=== PATIENT | male | born 1960 | race Caucasian/White ===

== ENCOUNTER 2022-04-01 08:11 | Inpatient (IN) ==
[2022-04-01] MEDS ORDERED: Naloxone 0.4 MG/ML INJ IVP PRN (17:16)
[2022-04-01] MEDS ORDERED: Ondansetron 4 MG/2 ML VIAL IVP PRN (17:16)
[2022-04-01] MEDS ORDERED: Nitroglycerin 0.4 MG TAB.SUBL SL PRN (17:21)
[2022-04-01] MEDS ORDERED: Perflutren Lipid Microsphere 1.3 ML in 0.9 % Sodium Chloride 8.7 ML IVP PRN (17:22)
[2022-04-01] MEDS ORDERED: *HR* HYDROcodone/Acet 5/325 mg TABLET PO ONE (18:48)
[2022-04-01] MEDS: *HR* LORazepam 2 MG/ML VIAL IVP PRN (19:49)
[2022-04-01] MEDS: *HR* Heparin 5,000 UNIT/ML VIAL SQ SCH (19:50)
[2022-04-01] MEDS ORDERED: Gadolinium Contrast Agent (WT Based) IV PRN (20:48)
[2022-04-01 21:12] LABS: Basophils # 0.1 K/mcL (0.0-0.2); Basophils % 1.1 %; Eosinophils % 0.2 %; Hematocrit 37.5 % (37.5-50.1); Hemoglobin 12.8 g/dL (12.9-16.9); Immature Granulocytes % 0.5 % (0-4); Immature Platelets 4.1 % (1.1-6.1); Lymphocytes # 0.9 K/mcL (0.6-4.6); Lymphocytes % 13.2 %; Mean Corpuscular HGB Conc 34.1 g/dL (31.6-35.5); Mean Corpuscular Hemoglobin 31.1 pg (28.0-33.3); Mean Platelet Volume 10.1 fL (9.4-12.4); Monocytes # 0.8 K/mcL (0.0-1.3); Neutrophils # 4.8 K/mcL (1.6-8.9); Red Blood Count 4.12 M/mcL (4.19-5.50); Red Cell Distribution Width 15.4 % (11.5-14.5); White Blood Count 6.5 K/mcL (4.3-11.1)
[2022-04-01 21:22] LABS: INR 1.6; Prothrombin Time 17.8 Seconds (9.4-12.1)
[2022-04-01 21:30] LABS: Alanine Aminotransferase 15 Units/L (7-52); Albumin 2.9 g/dL (3.5-5.7); Albumin/Globulin Ratio 0.7 (1.1-2.2); Alkaline Phosphatase 111 Units/L (34-104); Aspartate Amino Transferase 50 Units/L (13-39); BUN/Creatinine Ratio 17 (6-26); Bilirubin,Total 2.2 mg/dL (0.3-1.0); Blood Urea Nitrogen 8 mg/dL (8-23); Calcium 8.2 mg/dL (8.6-10.3); Carbon Dioxide 25 mEq/L (23-29); Chloride 100 mEq/L (98-107); Glucose 120 mg/dL (70-105); Magnesium 1.7 mg/dL (1.6-2.6); Osmolality,Calculated 272 (280-300); Potassium 3.9 mEq/L (3.5-5.1); Sodium 131 mEq/L (136-145); Total Protein 6.9 g/dL (6.4-8.9); eGFR For African Americans > 60 (> 60); eGFR For Non-African Americans > 60 (> 60)
[2022-04-01 21:32] LABS: Platelet Count 96 K/mcL (140-400); Platelet Estimate Decreased (Normal)
[2022-04-02] MEDS: *HR* Heparin 5,000 UNIT/ML VIAL SQ SCH (04:42)
[2022-04-02] MEDS ORDERED: *HR* HYDROcodone/Acet 5/325 mg TABLET PO ONE (04:48)
[2022-04-02] MEDS: *HR* LORazepam 2 MG/ML VIAL IVP PRN ×2 (04:56→19:56)
[2022-04-02 05:10] LABS: Chol/HDL Ratio 4.4 (0-4.9)
[2022-04-02] MEDS ORDERED: Iopamidol - 370 500 ML MLS IVP ONE ×2 (08:20)
[2022-04-02] MEDS ORDERED: *HR* LORazepam 2 MG/ML VIAL IVP PRN ×2 (08:41)
[2022-04-02] MEDS ORDERED: Aspirin 81 MG TAB.CHEW PO SCH (09:00)
[2022-04-02] MEDS ORDERED: *HR* LORazepam 2 MG/ML VIAL IVP ONE ×3 (09:28→14:59)
[2022-04-02 09:48] LABS: Eosinophils % 0.6 %
[2022-04-02 09:49] LABS: Immature Granulocytes % 0.3 % (0-4); Mean Corpuscular Volume 91.9 fL (83.0-100.0)
[2022-04-02 09:50] LABS: Basophils # 0.1 K/mcL (0.0-0.2); Basophils % 0.8 %; Hematocrit 39.5 % (37.5-50.1); Immature Platelets 4.5 % (1.1-6.1); Lymphocytes # 1.4 K/mcL (0.6-4.6); Lymphocytes % 22.6 %; Mean Corpuscular HGB Conc 32.9 g/dL (31.6-35.5); Mean Corpuscular Hemoglobin 30.2 pg (28.0-33.3); Mean Platelet Volume 10.3 fL (9.4-12.4); Monocytes # 0.7 K/mcL (0.0-1.3); Monocytes % 11.7 %; Platelet Count 116 K/mcL (140-400); Red Cell Distribution Width 15.5 % (11.5-14.5); White Blood Count 6.3 K/mcL (4.3-11.1)
[2022-04-02] MEDS ORDERED: Perflutren Lipid Microsphere 1.3 ML in 0.9 % Sodium Chloride 8.7 ML IVP PRN (09:52)
[2022-04-02] MEDS ORDERED: GADOBUTROL 30 MMOL/30 ML VIAL IVP ONE (10:02)
[2022-04-02 10:33] LABS: Platelet Estimate Slight Decrease (Normal)
[2022-04-02] MEDS ORDERED: Dextrose 4 GM Chewable Tablets PO PRN ×2 (12:07)
[2022-04-02] MEDS ORDERED: D5% in Water 1,000 ML IVC PRN (12:07)
[2022-04-02] MEDS ORDERED: *HR* Dextrose 50 % in Water (Syg) 50 ML SYRINGE IVP PRN (12:07)
[2022-04-02] MEDS: Insulin LISPRO 300 UNITS/3 ML VIAL SUBQ SCH ×3 (12:51→20:16)
[2022-04-02] MEDS: Nicotine 21 MG PATCH.TD24 TD SCH (12:56)
[2022-04-02] MEDS: Dexmedetomidine HCl 400 MCG/100 ML MLS IVC SCH ×2 (15:04→22:19)
[2022-04-02] MEDS: Thiamine (B-1) 100 MG, Folic Acid 1 MG, MVI, adult with vitamin K 10 ML in 0.9 % Sodi... IVPB SCH (19:04)
[2022-04-02] MEDS ORDERED: *HR* Promethazine 25 MG/ML VIAL IM PRN (22:35)
[2022-04-02] MEDS ORDERED: Ondansetron 4 MG/2 ML VIAL IVP PRN (22:43)
[2022-04-03 01:08] LABS: Amphetamine Screen,Urine Negative ng/mL (Cutoff=1000); Barbiturate Screen,Urine Negative ng/mL (Cutoff=200); Benzodiazepines Screen,Urine Negative ng/mL (Cutoff=200); Cannabinoid Screen,Urine Negative ng/mL (Cutoff = 50); Cocaine Screen,Urine Negative ng/mL (Cutoff= 300); Opiate Screen,Urine Positive ng/mL (Cutoff=300); Phencyclidine Screen,Urine Negative ng/mL (Cutoff=25)
[2022-04-03] MEDS: Dexmedetomidine HCl 400 MCG/100 ML MLS IVC SCH (05:20)
[2022-04-03 05:45] LABS: Basophils % 1.1 %; Immature Granulocytes % 0.4 % (0-4)
[2022-04-03 05:47] LABS: Basophils # 0.1 K/mcL (0.0-0.2); Eosinophils # 0.1 K/mcL (0.0-0.6); Eosinophils % 1.3 %; Hematocrit 38.3 % (37.5-50.1); Hemoglobin 12.9 g/dL (12.9-16.9); Immature Platelets 5.2 % (1.1-6.1); Lymphocytes # 1.2 K/mcL (0.6-4.6); Lymphocytes % 27.6 %; Mean Corpuscular HGB Conc 33.7 g/dL (31.6-35.5); Mean Corpuscular Hemoglobin 30.9 pg (28.0-33.3); Mean Corpuscular Volume 91.8 fL (83.0-100.0); Mean Platelet Volume 10.2 fL (9.4-12.4); Monocytes # 0.6 K/mcL (0.0-1.3); Monocytes % 12.4 %; Neutrophils # 2.6 K/mcL (1.6-8.9); Red Blood Count 4.17 M/mcL (4.19-5.50); Red Cell Distribution Width 15.1 % (11.5-14.5); Segmented Neutrophils % 57.2 %; White Blood Count 4.5 K/mcL (4.3-11.1)
[2022-04-03 05:58] LABS: Platelet Count 88 K/mcL (140-400)
[2022-04-03 06:07] LABS: Alanine Aminotransferase 14 Units/L (7-52); Albumin 2.7 g/dL (3.5-5.7); Albumin/Globulin Ratio 0.6 (1.1-2.2); Alkaline Phosphatase 104 Units/L (34-104); Aspartate Amino Transferase 51 Units/L (13-39); BUN/Creatinine Ratio 18 (6-26); Bilirubin,Total 2.2 mg/dL (0.3-1.0); Blood Urea Nitrogen 9 mg/dL (8-23); Calcium 8.3 mg/dL (8.6-10.3); Carbon Dioxide 23 mEq/L (23-29); Chloride 102 mEq/L (98-107); Globulin 4.4 g/dL (2.4-3.5); Glucose 105 mg/dL (70-105); Osmolality,Calculated 271 (280-300); Potassium 3.7 mEq/L (3.5-5.1); Sodium 131 mEq/L (136-145); Total Protein 7.1 g/dL (6.4-8.9); eGFR For African Americans > 60 (> 60); eGFR For Non-African Americans > 60 (> 60)
[2022-04-03] MEDS: *HR* LORazepam 2 MG/ML VIAL IVP PRN ×2 (06:18→16:03)
[2022-04-03] MEDS: Nicotine 21 MG PATCH.TD24 TD SCH (08:23)
[2022-04-03 09:16] LABS: Estimated Average Glucose 108 mg/dl; Hemoglobin A1C 5.4 %
[2022-04-03] MEDS: Insulin LISPRO 300 UNITS/3 ML VIAL SUBQ SCH ×4 (09:23→21:26)
[2022-04-03] MEDS ORDERED: *HR* LORazepam 2 MG/ML VIAL IVP SCH ×2 (12:00)
[2022-04-03] MEDS ORDERED: *HR* LORazepam 2 MG/ML VIAL IVP PRN (13:23)
[2022-04-03] MEDS: Thiamine (B-1) 100 MG, Folic Acid 1 MG, MVI, adult with vitamin K 10 ML in 0.9 % Sodi... IVPB SCH (18:38)
[2022-04-03] MEDS: Acetaminophen 325 MG TABLET PO PRN (21:27)
[2022-04-04 02:50] LABS: Basophils # 0.1 K/mcL (0.0-0.2); Basophils % 0.7 %; Eosinophils # 0.1 K/mcL (0.0-0.6); Eosinophils % 0.9 %; Hematocrit 40.6 % (37.5-50.1); Hemoglobin 13.7 g/dL (12.9-16.9); Immature Granulocytes % 0.3 % (0-4); Immature Platelets 4.3 % (1.1-6.1); Lymphocytes # 1.3 K/mcL (0.6-4.6); Lymphocytes % 19.1 %; Mean Corpuscular HGB Conc 33.7 g/dL (31.6-35.5); Mean Corpuscular Volume 91.9 fL (83.0-100.0); Mean Platelet Volume 10.5 fL (9.4-12.4); Monocytes # 0.9 K/mcL (0.0-1.3); Monocytes % 13.3 %; Neutrophils # 4.4 K/mcL (1.6-8.9); Platelet Count 100 K/mcL (140-400); Red Blood Count 4.42 M/mcL (4.19-5.50); Segmented Neutrophils % 65.7 %; White Blood Count 6.7 K/mcL (4.3-11.1)
[2022-04-04 03:06] LABS: Alanine Aminotransferase 15 Units/L (7-52); Albumin 2.8 g/dL (3.5-5.7); Albumin/Globulin Ratio 0.6 (1.1-2.2); Alkaline Phosphatase 105 Units/L (34-104); Aspartate Amino Transferase 60 Units/L (13-39); Bilirubin,Total 2.3 mg/dL (0.3-1.0); Blood Urea Nitrogen 11 mg/dL (8-23); Calcium 8.5 mg/dL (8.6-10.3); Carbon Dioxide 19 mEq/L (23-29); Chloride 103 mEq/L (98-107); Globulin 4.5 g/dL (2.4-3.5); Glucose 86 mg/dL (70-105); Osmolality,Calculated 271 (280-300); Potassium 3.8 mEq/L (3.5-5.1); Sodium 131 mEq/L (136-145); Total Protein 7.3 g/dL (6.4-8.9)
[2022-04-04 03:35] LABS: BUN/Creatinine Ratio 22 (6-26); eGFR For African Americans > 60 (> 60); eGFR For Non-African Americans > 60 (> 60)
[2022-04-04 03:42] LABS: Magnesium 1.8 mg/dL (1.6-2.6)
[2022-04-04] MEDS: *HR* LORazepam 2 MG/ML VIAL IVP PRN ×2 (05:52→20:44)
[2022-04-04] MEDS ORDERED: Regadenoson 0.4 MG/5 ML SYRINGE IVP ONE (05:54)
[2022-04-04] MEDS: lisinopriL 10 MG TABLET PO SCH (09:12)
[2022-04-04] MEDS: Nicotine 21 MG PATCH.TD24 TD SCH (09:13)
[2022-04-04] MEDS: Insulin LISPRO 300 UNITS/3 ML VIAL SUBQ SCH ×4 (09:22→21:30)
[2022-04-04 11:07] LABS: Kappa Qnt Free Light Chains 40.64 mg/L (3.30-19.40); Lambda Qnt Free Light Chains 39.47 mg/L (5.71-26.30)
[2022-04-04] MEDS: Thiamine (B-1) 100 MG, Folic Acid 1 MG, MVI, adult with vitamin K 10 ML in 0.9 % Sodi... IVPB SCH (18:49)
[2022-04-05] MEDS: *HR* LORazepam 2 MG/ML VIAL IVP PRN ×3 (02:53→18:16)
[2022-04-05 04:14] LABS: Basophils # 0.1 K/mcL (0.0-0.2); Basophils % 0.6 %; Eosinophils % 0.3 %; Hematocrit 40.7 % (37.5-50.1); Hemoglobin 13.4 g/dL (12.9-16.9); Immature Granulocytes % 0.5 % (0-4); Immature Platelets 4.4 % (1.1-6.1); Lymphocytes % 20.5 %; Mean Corpuscular HGB Conc 32.9 g/dL (31.6-35.5); Mean Corpuscular Hemoglobin 30.2 pg (28.0-33.3); Mean Corpuscular Volume 91.7 fL (83.0-100.0); Mean Platelet Volume 10.2 fL (9.4-12.4); Monocytes # 1.3 K/mcL (0.0-1.3); Monocytes % 13.5 %; Neutrophils # 6.2 K/mcL (1.6-8.9); Platelet Count 116 K/mcL (140-400); Red Blood Count 4.44 M/mcL (4.19-5.50); Red Cell Distribution Width 15.2 % (11.5-14.5); Segmented Neutrophils % 64.6 %; White Blood Count 9.6 K/mcL (4.3-11.1)
[2022-04-05 04:56] LABS: Alanine Aminotransferase 16 Units/L (7-52); Albumin 2.9 g/dL (3.5-5.7); Albumin/Globulin Ratio 0.6 (1.1-2.2); Alkaline Phosphatase 103 Units/L (34-104); Aspartate Amino Transferase 51 Units/L (13-39); BUN/Creatinine Ratio 17 (6-26); Bilirubin,Total 2.2 mg/dL (0.3-1.0); Blood Urea Nitrogen 9 mg/dL (8-23); Calcium 8.6 mg/dL (8.6-10.3); Carbon Dioxide 24 mEq/L (23-29); Chloride 105 mEq/L (98-107); Globulin 4.6 g/dL (2.4-3.5); Glucose 104 mg/dL (70-105); Magnesium 1.8 mg/dL (1.6-2.6); Osmolality,Calculated 281 (280-300); Phosphorous 2.7 mg/dL (2.7-4.5); Potassium 3.6 mEq/L (3.5-5.1); Sodium 136 mEq/L (136-145); Total Protein 7.5 g/dL (6.4-8.9); eGFR For African Americans > 60 (> 60); eGFR For Non-African Americans > 60 (> 60)
[2022-04-05] MEDS: Nicotine 21 MG PATCH.TD24 TD SCH (08:49)
[2022-04-05] MEDS: lisinopriL 10 MG TABLET PO SCH (08:49)
[2022-04-05] MEDS: Insulin LISPRO 300 UNITS/3 ML VIAL SUBQ SCH ×4 (08:49→20:23)
[2022-04-05] MEDS: Acetaminophen 325 MG TABLET PO PRN (20:22)
[2022-04-05 22:39] LABS: Alpha 2 Globulin (PEP) 0.86 g/dL (0.48-1.05); Beta Globulin (PEP) 1.01 g/dL (0.48-1.10)
[2022-04-06 05:11] LABS: Hemoglobin 13.1 g/dL (12.9-16.9)
[2022-04-06 05:13] LABS: Hematocrit 38.4 % (37.5-50.1); Immature Platelets 4.5 % (1.1-6.1); Mean Corpuscular HGB Conc 34.1 g/dL (31.6-35.5); Mean Corpuscular Hemoglobin 30.9 pg (28.0-33.3); Mean Corpuscular Volume 90.6 fL (83.0-100.0); Mean Platelet Volume 10.4 fL (9.4-12.4); Red Blood Count 4.24 M/mcL (4.19-5.50); Red Cell Distribution Width 15.4 % (11.5-14.5); White Blood Count 7.2 K/mcL (4.3-11.1)
[2022-04-06 05:31] LABS: Alanine Aminotransferase 19 Units/L (7-52); Albumin 2.8 g/dL (3.5-5.7); Albumin/Globulin Ratio 0.6 (1.1-2.2); Alkaline Phosphatase 98 Units/L (34-104); Aspartate Amino Transferase 47 Units/L (13-39); BUN/Creatinine Ratio 19 (6-26); Bilirubin,Total 2.1 mg/dL (0.3-1.0); Blood Urea Nitrogen 11 mg/dL (8-23); Calcium 8.5 mg/dL (8.6-10.3); Carbon Dioxide 23 mEq/L (23-29); Chloride 105 mEq/L (98-107); Globulin 4.4 g/dL (2.4-3.5); Glucose 102 mg/dL (70-105); Osmolality,Calculated 280 (280-300); Potassium 3.3 mEq/L (3.5-5.1); Sodium 135 mEq/L (136-145); Total Protein 7.2 g/dL (6.4-8.9); eGFR For African Americans > 60 (> 60); eGFR For Non-African Americans > 60 (> 60)
[2022-04-06] MEDS: lisinopriL 10 MG TABLET PO SCH (08:40)
[2022-04-06] MEDS: Nicotine 21 MG PATCH.TD24 TD SCH (08:40)
[2022-04-06] MEDS: amLODIPine 5 MG TABLET PO SCH (08:40)
[2022-04-06] MEDS: Metoprolol XL (24 HR) Succ 50 MG TAB.ER.24H PO SCH (08:40)
[2022-04-06] MEDS: Insulin LISPRO 300 UNITS/3 ML VIAL SUBQ SCH ×4 (08:58→20:38)
[2022-04-06] MEDS: *HR* LORazepam 2 MG/ML VIAL IVP PRN (11:01)
[2022-04-06] MEDS: Acetaminophen 325 MG TABLET PO PRN (11:01)
[2022-04-06 13:11] LABS: Immunoglobulin G 1731 mg/dL (768-1632)
[2022-04-06 13:12] LABS: IFE Reflexed IFE Done; Immunoglobulin A 757 mg/dL (68-408); Immunoglobulin M 1115 mg/dL (35-263)
[2022-04-07 05:11] LABS: Alanine Aminotransferase 26 Units/L (7-52); Albumin 2.9 g/dL (3.5-5.7); Albumin/Globulin Ratio 0.6 (1.1-2.2); Alkaline Phosphatase 103 Units/L (34-104); Aspartate Amino Transferase 60 Units/L (13-39); BUN/Creatinine Ratio 19 (6-26); Bilirubin,Total 1.7 mg/dL (0.3-1.0); Blood Urea Nitrogen 11 mg/dL (8-23); Calcium 8.6 mg/dL (8.6-10.3); Carbon Dioxide 23 mEq/L (23-29); Chloride 107 mEq/L (98-107); Globulin 4.6 g/dL (2.4-3.5); Glucose 107 mg/dL (70-105); Hemoglobin 13.4 g/dL (12.9-16.9); Mean Corpuscular Volume 90.9 fL (83.0-100.0); Osmolality,Calculated 282 (280-300); Potassium 3.8 mEq/L (3.5-5.1); Sodium 136 mEq/L (136-145); Total Protein 7.5 g/dL (6.4-8.9); eGFR For African Americans > 60 (> 60); eGFR For Non-African Americans > 60 (> 60)
[2022-04-07 05:13] LABS: Immature Platelets 4.5 % (1.1-6.1); Mean Corpuscular HGB Conc 33.5 g/dL (31.6-35.5); Mean Corpuscular Hemoglobin 30.5 pg (28.0-33.3); Mean Platelet Volume 10.7 fL (9.4-12.4); Red Blood Count 4.4 M/mcL (4.19-5.50); Red Cell Distribution Width 15.2 % (11.5-14.5); White Blood Count 8.1 K/mcL (4.3-11.1)
[2022-04-07] MEDS: lisinopriL 10 MG TABLET PO SCH (09:19)
[2022-04-07] MEDS: Nicotine 21 MG PATCH.TD24 TD SCH (09:19)
[2022-04-07] MEDS: amLODIPine 5 MG TABLET PO SCH (09:19)
[2022-04-07] MEDS: Insulin LISPRO 300 UNITS/3 ML VIAL SUBQ SCH ×3 (09:19→17:23)
[2022-04-07] MEDS: Metoprolol XL (24 HR) Succ 50 MG TAB.ER.24H PO SCH (09:19)
[2022-04-07] MEDS: Acetaminophen 325 MG TABLET PO PRN (14:19)
[2022-04-08] MEDS: Acetaminophen 325 MG TABLET PO PRN (01:31)
[2022-04-08] MEDS: Insulin LISPRO 300 UNITS/3 ML VIAL SUBQ SCH ×5 (02:02→21:40)
[2022-04-08 03:37] LABS: Hematocrit 39.3 % (37.5-50.1); Hemoglobin 13.3 g/dL (12.9-16.9); Immature Platelets 5.2 % (1.1-6.1); Mean Corpuscular HGB Conc 33.8 g/dL (31.6-35.5); Mean Corpuscular Hemoglobin 30.4 pg (28.0-33.3); Mean Corpuscular Volume 89.9 fL (83.0-100.0); Mean Platelet Volume 10.8 fL (9.4-12.4); Red Blood Count 4.37 M/mcL (4.19-5.50); White Blood Count 7.4 K/mcL (4.3-11.1)
[2022-04-08 03:55] LABS: BUN/Creatinine Ratio 14 (6-26); Blood Urea Nitrogen 8 mg/dL (8-23); Calcium 8.7 mg/dL (8.6-10.3); Carbon Dioxide 24 mEq/L (23-29); Chloride 104 mEq/L (98-107); Glucose 125 mg/dL (70-105); Osmolality,Calculated 278 (280-300); Potassium 3.4 mEq/L (3.5-5.1); Sodium 134 mEq/L (136-145); eGFR For African Americans > 60 (> 60); eGFR For Non-African Americans > 60 (> 60)
[2022-04-08] MEDS: Metoprolol XL (24 HR) Succ 50 MG TAB.ER.24H PO SCH (09:18)
[2022-04-08] MEDS: lisinopriL 10 MG TABLET PO SCH (09:18)
[2022-04-08] MEDS: amLODIPine 5 MG TABLET PO SCH (09:18)
[2022-04-08] MEDS: Nicotine 21 MG PATCH.TD24 TD SCH (09:19)
[2022-04-08] MEDS: *HR* OxyCODONE Immed Rel 5 MG TABLET PO PRN (12:07)
[2022-04-08] MEDS: *HR* LORazepam 2 MG/ML VIAL IVP PRN (20:48)
[2022-04-08] MEDS ORDERED: *HR* Labetalol 20 MG/4 ML SYRINGE IVP ONE (23:14)
[2022-04-09 01:18] LABS: Hematocrit 41.3 % (37.5-50.1); Mean Corpuscular HGB Conc 33.9 g/dL (31.6-35.5)
[2022-04-09 01:20] LABS: Immature Platelets 5.3 % (1.1-6.1); Mean Corpuscular Hemoglobin 30.5 pg (28.0-33.3); Mean Platelet Volume 11.1 fL (9.4-12.4); Red Blood Count 4.59 M/mcL (4.19-5.50); White Blood Count 7.9 K/mcL (4.3-11.1)
[2022-04-09] MEDS: *HR* LORazepam 2 MG/ML VIAL IVP PRN ×3 (01:34→20:04)
[2022-04-09 01:35] LABS: BUN/Creatinine Ratio 14 (6-26); Blood Urea Nitrogen 7 mg/dL (8-23); Carbon Dioxide 23 mEq/L (23-29); Chloride 102 mEq/L (98-107); Glucose 110 mg/dL (70-105); Osmolality,Calculated 273 (280-300); Potassium 3.5 mEq/L (3.5-5.1); Sodium 132 mEq/L (136-145); eGFR For African Americans > 60 (> 60); eGFR For Non-African Americans > 60 (> 60)
[2022-04-09] MEDS: Nicotine 21 MG PATCH.TD24 TD SCH (07:53)
[2022-04-09] MEDS: Metoprolol XL (24 HR) Succ 50 MG TAB.ER.24H PO SCH (07:53)
[2022-04-09] MEDS: amLODIPine 5 MG TABLET PO SCH (07:53)
[2022-04-09] MEDS: lisinopriL 10 MG TABLET PO SCH (07:54)
[2022-04-09] MEDS: Insulin LISPRO 300 UNITS/3 ML VIAL SUBQ SCH ×4 (09:47→20:34)
[2022-04-09] MEDS ORDERED: CeFAZolin Syr 2,000MG/20 ML 2,000 MG/20 ML SYRINGE IVPB ONE (10:48)
[2022-04-09] MEDS ORDERED: *HR* FentaNYL (PF) 100 MCG/2 ML VIAL ONE (11:30)
[2022-04-09] MEDS ORDERED: *HR* Propofol 200 MG/20 ML VIAL IVP ONE (11:30)
[2022-04-09] MEDS ORDERED: *HR* Remifentanil 2 MG VIAL IVP ONE (11:30)
[2022-04-09] MEDS ORDERED: *HR* Midazolam HCl 2 MG/2 ML VIAL ONE (11:30)
[2022-04-09] MEDS ORDERED: *HR* Succinylcholine 200 MG/10 ML VIAL IVP ONE (11:31)
[2022-04-09] MEDS ORDERED: Lidocaine -MPF 2% 2 ML VIAL ONE (11:31)
[2022-04-09] MEDS ORDERED: Lidocaine -MPF 4% 5 ML AMPUL ONE (11:31)
[2022-04-09] MEDS ORDERED: Ondansetron 4 MG/2 ML VIAL ONE (11:31)
[2022-04-09] MEDS ORDERED: *HR* Phenylephrine 10 MG/ML VIAL ONE (11:31)
[2022-04-09] MEDS ORDERED: Famotidine 20 MG/2 ML VIAL IVP ONE (12:00)
[2022-04-09] MEDS: Ringers Solution, Lactated 1,000 ML IVC SCH (12:46)
[2022-04-09 12:51] LABS: INR 1.7; Prothrombin Time 19.1 Seconds (9.4-12.1)
[2022-04-09 15:31] LABS: INR 1.6; Prothrombin Time 17.5 Seconds (9.4-12.1)
[2022-04-09 15:34] LABS: Activated Partial Thrombo Time 25.6 Seconds (26.0-36.0)
[2022-04-09] MEDS ORDERED: Polymyxin B Sulfate 500,000 UNIT, Sodium Chloride IRRigation 1,000 ML IR ONE (17:00)
[2022-04-09] MEDS: *HR* OxyCODONE Immed Rel 5 MG TABLET PO PRN (20:46)
[2022-04-09 21:39] LABS: INR 1.6; Prothrombin Time 18.3 Seconds (9.4-12.1)
[2022-04-10 04:52] LABS: Hematocrit 42.2 % (37.5-50.1)
[2022-04-10 04:53] LABS: Immature Platelets 5.9 % (1.1-6.1); Mean Corpuscular HGB Conc 33.2 g/dL (31.6-35.5); Mean Corpuscular Hemoglobin 30.4 pg (28.0-33.3); Mean Corpuscular Volume 91.7 fL (83.0-100.0); Mean Platelet Volume 12.4 fL (9.4-12.4); Red Blood Count 4.6 M/mcL (4.19-5.50); Red Cell Distribution Width 15.2 % (11.5-14.5); White Blood Count 7.9 K/mcL (4.3-11.1)
[2022-04-10 04:58] LABS: INR 1.7; Prothrombin Time 18.8 Seconds (9.4-12.1)
[2022-04-10 05:01] LABS: Activated Partial Thrombo Time 37.1 Seconds (26.0-36.0)
[2022-04-10 05:06] LABS: BUN/Creatinine Ratio 15 (6-26); Blood Urea Nitrogen 13 mg/dL (8-23); Calcium 9.1 mg/dL (8.6-10.3); Carbon Dioxide 23 mEq/L (23-29); Chloride 102 mEq/L (98-107); Glucose 103 mg/dL (70-105); Osmolality,Calculated 278 (280-300); Sodium 134 mEq/L (136-145); eGFR For African Americans > 60 (> 60); eGFR For Non-African Americans > 60 (> 60)
[2022-04-10] MEDS ORDERED: *HR* Rocuronium Bromide 50 MG/5 ML VIAL ONE (07:20)
[2022-04-10] MEDS ORDERED: Ondansetron 4 MG/2 ML VIAL ONE (07:20)
[2022-04-10] MEDS ORDERED: Lidocaine HCL 4 ML Topical Solution (Laryng-O-Jet Kit Sterile Pak) TP ONE (07:20)
[2022-04-10] MEDS ORDERED: Lidocaine -MPF 2% 2 ML VIAL ONE ×2 (07:20→07:30)
[2022-04-10] MEDS ORDERED: *HR* Succinylcholine 200 MG/10 ML VIAL IVP ONE (07:20)
[2022-04-10] MEDS ORDERED: *HR* Midazolam HCl 2 MG/2 ML VIAL ONE (07:20)
[2022-04-10] MEDS ORDERED: *HR* Remifentanil 2 MG VIAL IVP ONE (07:21)
[2022-04-10] MEDS ORDERED: *HR* Propofol 200 MG/20 ML VIAL IVP ONE (07:21)
[2022-04-10] MEDS ORDERED: *HR* Phenylephrine 10 MG/ML VIAL ONE (07:21)
[2022-04-10] MEDS ORDERED: Heparin 1,000 UNITS/500 mL 500 ML ONE (07:30)
[2022-04-10] MEDS ORDERED: Bupivacaine/EPI 1:200k 0.25% 50 ML VIAL ONE (08:02)
[2022-04-10] MEDS ORDERED: EPHEDrine 50 MG/ML VIAL ONE (09:12)
[2022-04-10] MEDS: Metoprolol XL (24 HR) Succ 50 MG TAB.ER.24H PO SCH (10:44)
[2022-04-10] MEDS: amLODIPine 5 MG TABLET PO SCH (10:44)
[2022-04-10] MEDS: lisinopriL 10 MG TABLET PO SCH (10:44)
[2022-04-10] MEDS: Nicotine 21 MG PATCH.TD24 TD SCH (10:44)
[2022-04-10] MEDS: Insulin LISPRO 300 UNITS/3 ML VIAL SUBQ SCH ×3 (10:44→20:34)
[2022-04-10 11:34] LABS: INR 1.6; Prothrombin Time 17.4 Seconds (9.4-12.1)
[2022-04-10] MEDS ORDERED: *HR* HYDROMORPHONE 2 MG/ML VIAL ONE (11:36)
[2022-04-10] MEDS ORDERED: *HR* LORazepam 2 MG/ML VIAL IVP PRN ×3 (15:06)
[2022-04-10] MEDS ORDERED: Nitroglycerin 0.4 MG TAB.SUBL SL PRN (15:06)
[2022-04-10] MEDS ORDERED: Ondansetron 4 MG/2 ML VIAL IVP PRN (15:06)
[2022-04-10] MEDS ORDERED: Naloxone 0.4 MG/ML INJ IVP PRN (15:06)
[2022-04-10] MEDS ORDERED: D5% in Water 1,000 ML IVC PRN (15:06)
[2022-04-10] MEDS ORDERED: Polymyxin B Sulfate 500,000 UNIT, Sodium Chloride IRRigation 1,000 ML IR ONE (17:00)
[2022-04-11 06:01] LABS: BUN/Creatinine Ratio 24 (6-26); Blood Urea Nitrogen 12 mg/dL (8-23); Calcium 8.8 mg/dL (8.6-10.3); Carbon Dioxide 27 mEq/L (23-29); Chloride 105 mEq/L (98-107); Glucose 118 mg/dL (70-105); Osmolality,Calculated 283 (280-300); Potassium 3.8 mEq/L (3.5-5.1); Sodium 136 mEq/L (136-145); eGFR For African Americans > 60 (> 60); eGFR For Non-African Americans > 60 (> 60)
[2022-04-11 07:41] LABS: Basophils % 0.1 %
[2022-04-11 07:51] LABS: Immature Granulocytes % 0.4 % (0-4)
[2022-04-11 07:53] LABS: Hematocrit 35.8 % (37.5-50.1); Hemoglobin 11.6 g/dL (12.9-16.9); Immature Platelets 6.1 % (1.1-6.1); Lymphocytes # 0.8 K/mcL (0.6-4.6); Lymphocytes % 10.9 %; Mean Corpuscular HGB Conc 32.4 g/dL (31.6-35.5); Mean Corpuscular Hemoglobin 29.7 pg (28.0-33.3); Mean Corpuscular Volume 91.8 fL (83.0-100.0); Mean Platelet Volume 12.4 fL (9.4-12.4); Monocytes # 0.9 K/mcL (0.0-1.3); Monocytes % 12.7 %; Neutrophils # 5.5 K/mcL (1.6-8.9); Platelet Count 109 K/mcL (140-400); Red Cell Distribution Width 14.8 % (11.5-14.5); Segmented Neutrophils % 75.9 %; White Blood Count 7.3 K/mcL (4.3-11.1)
[2022-04-11] MEDS: Nicotine 21 MG PATCH.TD24 TD SCH (09:46)
[2022-04-11] MEDS: Metoprolol XL (24 HR) Succ 50 MG TAB.ER.24H PO SCH (09:46)
[2022-04-11] MEDS: Insulin LISPRO 300 UNITS/3 ML VIAL SUBQ SCH ×4 (09:47→20:44)
[2022-04-11] MEDS: amLODIPine 5 MG TABLET PO SCH (09:47)
[2022-04-11] MEDS: lisinopriL 10 MG TABLET PO SCH (09:47)
[2022-04-11] MEDS: Ringers Solution, Lactated 1,000 ML IVC SCH (10:30)
[2022-04-11] MEDS: *HR* OxyCODONE Immed Rel 5 MG TABLET PO PRN (22:33)
[2022-04-12 02:30] LABS: Basophils % 0.5 %; Eosinophils # 0.1 K/mcL (0.0-0.6); Eosinophils % 0.7 %; Hematocrit 38.9 % (37.5-50.1); Hemoglobin 12.6 g/dL (12.9-16.9); Immature Granulocytes % 0.4 % (0-4); Immature Platelets 6.1 % (1.1-6.1); Lymphocytes # 1.5 K/mcL (0.6-4.6); Lymphocytes % 18.1 %; Mean Corpuscular HGB Conc 32.4 g/dL (31.6-35.5); Mean Corpuscular Hemoglobin 29.8 pg (28.0-33.3); Mean Platelet Volume 12.3 fL (9.4-12.4); Monocytes # 1.3 K/mcL (0.0-1.3); Monocytes % 16.1 %; Neutrophils # 5.2 K/mcL (1.6-8.9); Platelet Count 127 K/mcL (140-400); Red Blood Count 4.23 M/mcL (4.19-5.50); Red Cell Distribution Width 14.6 % (11.5-14.5); Segmented Neutrophils % 64.2 %; White Blood Count 8.1 K/mcL (4.3-11.1)
[2022-04-12 02:44] LABS: BUN/Creatinine Ratio 28 (6-26); Blood Urea Nitrogen 15 mg/dL (8-23); Calcium 8.8 mg/dL (8.6-10.3); Carbon Dioxide 25 mEq/L (23-29); Chloride 104 mEq/L (98-107); Glucose 87 mg/dL (70-105); Osmolality,Calculated 280 (280-300); Potassium 3.4 mEq/L (3.5-5.1); Sodium 135 mEq/L (136-145); eGFR For African Americans > 60 (> 60); eGFR For Non-African Americans > 60 (> 60)
[2022-04-12] MEDS: Metoprolol XL (24 HR) Succ 50 MG TAB.ER.24H PO SCH (09:33)
[2022-04-12] MEDS: Nicotine 21 MG PATCH.TD24 TD SCH (09:33)
[2022-04-12] MEDS: amLODIPine 5 MG TABLET PO SCH (09:33)
[2022-04-12] MEDS: lisinopriL 10 MG TABLET PO SCH (09:33)
[2022-04-12] MEDS: Insulin LISPRO 300 UNITS/3 ML VIAL SUBQ SCH ×4 (09:34→20:21)
[2022-04-12] MEDS: *HR* OxyCODONE Immed Rel 5 MG TABLET PO PRN (20:37)
[2022-04-13] MEDS: amLODIPine 5 MG TABLET PO SCH (08:00)
[2022-04-13] MEDS: lisinopriL 10 MG TABLET PO SCH (08:00)
[2022-04-13] MEDS: Metoprolol XL (24 HR) Succ 50 MG TAB.ER.24H PO SCH (08:00)
[2022-04-13] MEDS: Nicotine 21 MG PATCH.TD24 TD SCH (08:01)
[2022-04-13] MEDS: Insulin LISPRO 300 UNITS/3 ML VIAL SUBQ SCH ×4 (08:01→21:36)
[2022-04-13 10:17] LABS: BUN/Creatinine Ratio 26 (6-26); Blood Urea Nitrogen 13 mg/dL (8-23); Carbon Dioxide 23 mEq/L (23-29); Chloride 105 mEq/L (98-107); Glucose 95 mg/dL (70-105); Osmolality,Calculated 278 (280-300); Potassium 3.6 mEq/L (3.5-5.1); Sodium 134 mEq/L (136-145); eGFR For African Americans > 60 (> 60); eGFR For Non-African Americans > 60 (> 60)
[2022-04-13 11:33] LABS: Hemoglobin 13.4 g/dL (12.9-16.9); Red Cell Distribution Width 14.6 % (11.5-14.5)
[2022-04-13 11:35] LABS: Hematocrit 40.9 % (37.5-50.1); Immature Platelets 5.5 % (1.1-6.1); Mean Corpuscular HGB Conc 32.8 g/dL (31.6-35.5); Mean Corpuscular Volume 91.5 fL (83.0-100.0); Platelet Count 153 K/mcL (140-400); Red Blood Count 4.47 M/mcL (4.19-5.50)
[2022-04-13 14:37] LABS: Folate 20.1 ng/mL (3.0-16.0)
[2022-04-13 14:41] LABS: Vitamin B12 > 1500 pg/mL (250-1100)
[2022-04-13 16:12] LABS: Bacteria,Urine Few per hpf (None-Few); Bilirubin,Urine Negative (Negative); Blood,Urine Moderate (Negative); Clarity,Urine Turbid (Clear); Color,Urine Dark-Yellow (Yellow); Glucose,Urine (UA) Normal (Normal); Ketones,Urine 40 mg/dL (Negative); Leukocyte Esterase,Urine Negative (Negative); Mucus,Urine Many per lpf (None-Few); Nitrite,Urine Negative (Negative); PH,Urine 6.5 pH Units (5.0-8.0); Protein,Urine 70 mg/dL (Neg-Trace); RBC,Urine 50-100 per hpf (0-3); Specific Gravity,Urine 1.028 (1.010-1.025); Squamous Epithelial Cell,Urine Few per hpf (None-Few); Urobilinogen,Urine >=8.0 mg/dL (Normal)
[2022-04-13] MEDS: Lactulose Oral Soln 20 GM/30 ML UDC PO SCH ×2 (17:48→21:56)
[2022-04-13] MEDS ORDERED: cefTRIAXone 1,000 MG in 0.9 % Sodium Chloride 10 ML IVPB SCH (21:00)
[2022-04-13] MEDS: Acetaminophen 325 MG TABLET PO PRN (21:55)
[2022-04-14] MEDS: Lactulose Oral Soln 20 GM/30 ML UDC PO SCH ×3 (01:07→20:33)
[2022-04-14 08:59] LABS: Hemoglobin 14.5 g/dL (12.9-16.9); Red Cell Distribution Width 14.5 % (11.5-14.5)
[2022-04-14 09:01] LABS: Hematocrit 43.1 % (37.5-50.1); Immature Platelets 6.2 % (1.1-6.1); Mean Corpuscular HGB Conc 33.6 g/dL (31.6-35.5); Mean Corpuscular Hemoglobin 30.6 pg (28.0-33.3); Mean Corpuscular Volume 90.9 fL (83.0-100.0); Mean Platelet Volume 13.2 fL (9.4-12.4); Red Blood Count 4.74 M/mcL (4.19-5.50); White Blood Count 9.5 K/mcL (4.3-11.1)
[2022-04-14] MEDS: Insulin LISPRO 300 UNITS/3 ML VIAL SUBQ SCH ×4 (09:21→18:05)
[2022-04-14 09:23] LABS: BUN/Creatinine Ratio 26 (6-26); Blood Urea Nitrogen 19 mg/dL (8-23); Calcium 9.3 mg/dL (8.6-10.3); Carbon Dioxide 23 mEq/L (23-29); Chloride 106 mEq/L (98-107); Glucose 97 mg/dL (70-105); Osmolality,Calculated 286 (280-300); Potassium 3.6 mEq/L (3.5-5.1); Sodium 137 mEq/L (136-145); eGFR For African Americans > 60 (> 60); eGFR For Non-African Americans > 60 (> 60)
[2022-04-14] MEDS ORDERED: Lactulose 200 GM, Sodium Chloride IRRigation 700 ML RC ONE (09:39)
[2022-04-14] MEDS: amLODIPine 5 MG TABLET PO SCH (09:50)
[2022-04-14] MEDS: Metoprolol XL (24 HR) Succ 50 MG TAB.ER.24H PO SCH (09:50)
[2022-04-14] MEDS: Nicotine 21 MG PATCH.TD24 TD SCH (09:50)
[2022-04-14] MEDS: lisinopriL 10 MG TABLET PO SCH (09:50)
[2022-04-14 09:53] LABS: Magnesium 2.2 mg/dL (1.6-2.6)
[2022-04-14 10:00] LABS: ABG Base Excess -1 mEq/L (-2 to 3); ABG HCO3 21 mEq/L (21-27); ABG Oxygen Saturation 97 % (95-98); ABG PCO2 30 mmHg (35-45); ABG PH 7.46 pH Units (7.32-7.45); ABG PO2 87 mmHg (85-104); ABG TCO2 22 mEq/L (20-26)
[2022-04-14] MEDS ORDERED: 0.9 % Sodium Chloride 1,000 ML IV ONE (11:35)
[2022-04-14] MEDS ORDERED: Piperacillin/Tazobactam 3.375 GM in 0.9 % Sodium Chloride Mini Bag 100 ML IVPB SCH (12:00)
[2022-04-14 13:36] LABS: Eosinophils % 0.4 %; Red Cell Distribution Width 14.6 % (11.5-14.5)
[2022-04-14 13:38] LABS: Basophils % 0.4 %; Hematocrit 42.3 % (37.5-50.1); Immature Granulocytes % 0.3 % (0-4); Immature Platelets 5.6 % (1.1-6.1); Lymphocytes # 1.7 K/mcL (0.6-4.6); Lymphocytes % 15.2 %; Mean Corpuscular HGB Conc 33.1 g/dL (31.6-35.5); Mean Corpuscular Hemoglobin 30.3 pg (28.0-33.3); Mean Corpuscular Volume 91.6 fL (83.0-100.0); Monocytes # 1.5 K/mcL (0.0-1.3); Monocytes % 13.3 %; Neutrophils # 7.8 K/mcL (1.6-8.9); Platelet Count 182 K/mcL (140-400); Red Blood Count 4.62 M/mcL (4.19-5.50); Segmented Neutrophils % 70.4 %; White Blood Count 11.1 K/mcL (4.3-11.1)
[2022-04-14 13:53] LABS: BUN/Creatinine Ratio 31 (6-26); Blood Urea Nitrogen 23 mg/dL (8-23); Calcium 9.4 mg/dL (8.6-10.3); Carbon Dioxide 25 mEq/L (23-29); Chloride 105 mEq/L (98-107); Glucose 99 mg/dL (70-105); Osmolality,Calculated 288 (280-300); Potassium 3.7 mEq/L (3.5-5.1); Sodium 137 mEq/L (136-145); eGFR For African Americans > 60 (> 60); eGFR For Non-African Americans > 60 (> 60)
[2022-04-14] MEDS: Ampicillin 2,000 MG in 0.9 % Sodium Chloride Mini Bag 100 ML IVPB SCH ×3 (14:35→21:41)
[2022-04-14] MEDS ORDERED: D5 IVPB SCH (16:00)
[2022-04-14] MEDS ORDERED: Acyclovir 1,000 MG/20 ML VIAL IVPB SCH (16:00)
[2022-04-14] MEDS ORDERED: WATER IVPB SCH (16:00)
[2022-04-14] MEDS ORDERED: ACYCLOVIR IVPB SCH (16:00)
[2022-04-14 17:08] LABS: Red Blood Cell,CSF < 2000 RBC/mcL
[2022-04-14 17:16] LABS: Glucose,CSF 53 mg/dL (40-70); Total Protein,CSF 111 mg/dL (15-45)
[2022-04-14 17:19] LABS: Appearance,CSF Clear (Clear)
[2022-04-14] MEDS: cefTRIAXone 2,000 MG in 0.9 % Sodium Chloride Mini Bag 100 ML IVPB SCH (18:10)
[2022-04-15] MEDS: Insulin LISPRO 300 UNITS/3 ML VIAL SUBQ SCH ×4 (01:32→16:54)
[2022-04-15] MEDS: Ampicillin 2,000 MG in 0.9 % Sodium Chloride Mini Bag 100 ML IVPB SCH ×6 (02:33→21:23)
[2022-04-15] MEDS: cefTRIAXone 2,000 MG in 0.9 % Sodium Chloride Mini Bag 100 ML IVPB SCH ×2 (06:32→16:52)
[2022-04-15 06:57] LABS: Hematocrit 38.6 % (37.5-50.1); Hemoglobin 12.7 g/dL (12.9-16.9); Immature Platelets 5.2 % (1.1-6.1); Mean Corpuscular HGB Conc 32.9 g/dL (31.6-35.5); Mean Corpuscular Volume 91.3 fL (83.0-100.0); Mean Platelet Volume 13.3 fL (9.4-12.4); Red Blood Count 4.23 M/mcL (4.19-5.50); Red Cell Distribution Width 14.8 % (11.5-14.5); White Blood Count 7.7 K/mcL (4.3-11.1)
[2022-04-15 07:39] LABS: BUN/Creatinine Ratio 41 (6-26); Blood Urea Nitrogen 19 mg/dL (8-23); Calcium 8.9 mg/dL (8.6-10.3); Carbon Dioxide 24 mEq/L (23-29); Chloride 111 mEq/L (98-107); Glucose 100 mg/dL (70-105); Osmolality,Calculated 294 (280-300); Potassium 3.5 mEq/L (3.5-5.1); Sodium 141 mEq/L (136-145); eGFR For African Americans > 60 (> 60); eGFR For Non-African Americans > 60 (> 60)
[2022-04-15] MEDS ORDERED: cefTRIAXone 2,000 MG in 0.9 % Sodium Chloride 20 ML IVP SCH (09:00)
[2022-04-15] MEDS: lisinopriL 10 MG TABLET PO SCH (10:41)
[2022-04-15] MEDS: amLODIPine 5 MG TABLET PO SCH (10:41)
[2022-04-15] MEDS: Metoprolol XL (24 HR) Succ 50 MG TAB.ER.24H PO SCH (10:41)
[2022-04-15] MEDS: Lactulose Oral Soln 20 GM/30 ML UDC PO SCH ×2 (10:42→21:22)
[2022-04-15] MEDS: Nicotine 21 MG PATCH.TD24 TD SCH (10:46)
[2022-04-15] MEDS: *HR* OxyCODONE Immed Rel 5 MG TABLET PO PRN (11:08)
[2022-04-15] MEDS: Lactulose 200 GM, Sodium Chloride IRRigation 700 ML RC SCH ×2 (12:03→21:22)
[2022-04-15] MEDS ORDERED: D5 IVPB SCH (17:00)
[2022-04-15] MEDS ORDERED: WATER IVPB SCH (17:00)
[2022-04-15] MEDS ORDERED: ACYCLOVIR IVPB SCH (17:00)
[2022-04-16] MEDS: Insulin LISPRO 300 UNITS/3 ML VIAL SUBQ SCH ×5 (00:41→23:47)
[2022-04-16] MEDS: Ampicillin 2,000 MG in 0.9 % Sodium Chloride Mini Bag 100 ML IVPB SCH ×4 (02:00→13:17)
[2022-04-16 02:18] LABS: Hematocrit 40.2 % (37.5-50.1); Hemoglobin 13.3 g/dL (12.9-16.9); Immature Platelets 4.7 % (1.1-6.1); Mean Corpuscular HGB Conc 33.1 g/dL (31.6-35.5); Mean Corpuscular Hemoglobin 30.2 pg (28.0-33.3); Mean Corpuscular Volume 91.2 fL (83.0-100.0); Platelet Count 147 K/mcL (140-400); Red Blood Count 4.41 M/mcL (4.19-5.50); Red Cell Distribution Width 14.6 % (11.5-14.5); White Blood Count 7.6 K/mcL (4.3-11.1)
[2022-04-16 02:28] LABS: BUN/Creatinine Ratio 29 (6-26); Blood Urea Nitrogen 14 mg/dL (8-23); Calcium 9.2 mg/dL (8.6-10.3); Carbon Dioxide 23 mEq/L (23-29); Chloride 113 mEq/L (98-107); Glucose 118 mg/dL (70-105); Osmolality,Calculated 300 (280-300); Potassium 3.1 mEq/L (3.5-5.1); Sodium 144 mEq/L (136-145); eGFR For African Americans > 60 (> 60); eGFR For Non-African Americans > 60 (> 60)
[2022-04-16] MEDS: cefTRIAXone 2,000 MG in 0.9 % Sodium Chloride Mini Bag 100 ML IVPB SCH (06:47)
[2022-04-16] MEDS: amLODIPine 5 MG TABLET PO SCH (07:33)
[2022-04-16] MEDS: lisinopriL 10 MG TABLET PO SCH (07:33)
[2022-04-16] MEDS: Metoprolol XL (24 HR) Succ 50 MG TAB.ER.24H PO SCH (07:33)
[2022-04-16] MEDS: Lactulose Oral Soln 20 GM/30 ML UDC PO SCH ×2 (07:33→21:12)
[2022-04-16] MEDS: Nicotine 21 MG PATCH.TD24 TD SCH (07:34)
[2022-04-16] MEDS: Lactulose 200 GM, Sodium Chloride IRRigation 700 ML RC SCH ×2 (07:44→22:32)
[2022-04-16] MEDS ORDERED: E-Z-HD (BARIUM SULF) SUSPENSION PO ONE (12:39)
[2022-04-16] MEDS ORDERED: E-Z-PAQUE (BARIUM SULF) SUSP 1 BOTTLE PO ONE (12:39)
[2022-04-16] MEDS ORDERED: Gadolinium Contrast Agent (WT Based) IV PRN (14:29)
[2022-04-16] MEDS: Thiamine (B-1) 200 MG in 0.9 % Sodium Chloride 50 ML IVPB SCH (16:09)
[2022-04-16] MEDS: QUEtiapine Fumarate 25 MG TABLET PO SCH (21:12)
[2022-04-17 02:53] LABS: Hemoglobin 12.2 g/dL (12.9-16.9); Mean Corpuscular Hemoglobin 30.3 pg (28.0-33.3); Platelet Count 136 K/mcL (140-400); Red Blood Count 4.02 M/mcL (4.19-5.50); Red Cell Distribution Width 14.6 % (11.5-14.5); White Blood Count 7.3 K/mcL (4.3-11.1)
[2022-04-17 02:54] LABS: BUN/Creatinine Ratio 30 (6-26); Blood Urea Nitrogen 17 mg/dL (8-23); Calcium 8.9 mg/dL (8.6-10.3); Carbon Dioxide 23 mEq/L (23-29); Chloride 115 mEq/L (98-107); Glucose 96 mg/dL (70-105); Osmolality,Calculated 301 (280-300); Potassium 3.3 mEq/L (3.5-5.1); Sodium 145 mEq/L (136-145); eGFR For African Americans > 60 (> 60); eGFR For Non-African Americans > 60 (> 60)
[2022-04-17] MEDS: Insulin LISPRO 300 UNITS/3 ML VIAL SUBQ SCH ×3 (06:35→18:46)
[2022-04-17] MEDS: lisinopriL 10 MG TABLET PO SCH (09:51)
[2022-04-17] MEDS: amLODIPine 5 MG TABLET PO SCH (09:51)
[2022-04-17] MEDS: Lactulose Oral Soln 20 GM/30 ML UDC PO SCH ×2 (09:51→22:58)
[2022-04-17] MEDS: Metoprolol XL (24 HR) Succ 50 MG TAB.ER.24H PO SCH (09:51)
[2022-04-17] MEDS: Nicotine 21 MG PATCH.TD24 TD SCH (09:52)
[2022-04-17] MEDS: Lactulose 200 GM, Sodium Chloride IRRigation 700 ML RC SCH (10:08)
[2022-04-17] MEDS: Thiamine (B-1) 200 MG in 0.9 % Sodium Chloride 50 ML IVPB SCH (11:22)
[2022-04-17] MEDS: Folic Acid 1 MG in 0.9 % Sodium Chloride 50 ML IVPB SCH (14:46)
[2022-04-17] MEDS: QUEtiapine Fumarate 25 MG TABLET PO SCH (22:58)
[2022-04-17] MEDS ORDERED: QUEtiapine Fumarate 25 MG TABLET PO ONE (23:33)
[2022-04-18] MEDS: Insulin LISPRO 300 UNITS/3 ML VIAL SUBQ SCH ×4 (01:53→20:47)
[2022-04-18] MEDS: Lactulose 200 GM, Sodium Chloride IRRigation 700 ML RC SCH ×3 (01:54→20:50)
[2022-04-18 03:14] LABS: Hematocrit 41.1 % (37.5-50.1); Hemoglobin 13.2 g/dL (12.9-16.9); Immature Platelets 5.9 % (1.1-6.1); Mean Corpuscular HGB Conc 32.1 g/dL (31.6-35.5); Mean Corpuscular Volume 93.4 fL (83.0-100.0); Red Blood Count 4.4 M/mcL (4.19-5.50); Red Cell Distribution Width 14.6 % (11.5-14.5)
[2022-04-18 03:32] LABS: Alanine Aminotransferase 45 Units/L (7-52); Albumin/Globulin Ratio 0.6 (1.1-2.2); Alkaline Phosphatase 91 Units/L (34-104); Aspartate Amino Transferase 65 Units/L (13-39); BUN/Creatinine Ratio 29 (6-26); Bilirubin,Total 1.3 mg/dL (0.3-1.0); Blood Urea Nitrogen 15 mg/dL (8-23); Calcium 9.2 mg/dL (8.6-10.3); Carbon Dioxide 22 mEq/L (23-29); Chloride 114 mEq/L (98-107); Globulin 4.8 g/dL (2.4-3.5); Glucose 105 mg/dL (70-105); Osmolality,Calculated 299 (280-300); Potassium 3.3 mEq/L (3.5-5.1); Sodium 144 mEq/L (136-145); Total Protein 7.8 g/dL (6.4-8.9); eGFR For African Americans > 60 (> 60); eGFR For Non-African Americans > 60 (> 60)
[2022-04-18] MEDS: Lactulose Oral Soln 20 GM/30 ML UDC PO SCH ×2 (08:17→21:24)
[2022-04-18] MEDS: amLODIPine 5 MG TABLET PO SCH (08:17)
[2022-04-18] MEDS: lisinopriL 10 MG TABLET PO SCH (08:17)
[2022-04-18] MEDS: Nicotine 21 MG PATCH.TD24 TD SCH (08:17)
[2022-04-18] MEDS: Metoprolol XL (24 HR) Succ 50 MG TAB.ER.24H PO SCH (08:17)
[2022-04-18] MEDS: Thiamine (B-1) 200 MG in 0.9 % Sodium Chloride 50 ML IVPB SCH (08:26)
[2022-04-18] MEDS: Folic Acid 1 MG in 0.9 % Sodium Chloride 50 ML IVPB SCH (08:26)
[2022-04-18 10:32] LABS: Enterovirus RNA Qual (PCR) NOT DETECTED
[2022-04-18] MEDS ORDERED: Lidocaine -MPF 1% 5 ML AMPUL INFILT ONE (14:09)
[2022-04-18 16:38] LABS: HSV Source CSF
[2022-04-18] MEDS: QUEtiapine Fumarate 25 MG TABLET PO SCH (21:19)
[2022-04-19] MEDS: Insulin LISPRO 300 UNITS/3 ML VIAL SUBQ SCH ×5 (00:40→23:18)
[2022-04-19] MEDS ORDERED: Lactulose 200 GM, Sodium Chloride IRRigation 700 ML RC PRN (03:15)
[2022-04-19 06:11] LABS: Alanine Aminotransferase 39 Units/L (7-52); Albumin 2.9 g/dL (3.5-5.7); Albumin/Globulin Ratio 0.6 (1.1-2.2); Alkaline Phosphatase 97 Units/L (34-104); Aspartate Amino Transferase 50 Units/L (13-39); BUN/Creatinine Ratio 33 (6-26); Bilirubin,Total 1.4 mg/dL (0.3-1.0); Blood Urea Nitrogen 19 mg/dL (8-23); Carbon Dioxide 26 mEq/L (23-29); Chloride 113 mEq/L (98-107); Globulin 4.5 g/dL (2.4-3.5); Glucose 95 mg/dL (70-105); Osmolality,Calculated 300 (280-300); Potassium 3.5 mEq/L (3.5-5.1); Sodium 144 mEq/L (136-145); Total Protein 7.4 g/dL (6.4-8.9); eGFR For African Americans > 60 (> 60); eGFR For Non-African Americans > 60 (> 60)
[2022-04-19 06:44] LABS: Hematocrit 37.9 % (37.5-50.1); Hemoglobin 12.3 g/dL (12.9-16.9); Mean Corpuscular HGB Conc 32.5 g/dL (31.6-35.5); Mean Corpuscular Hemoglobin 30.2 pg (28.0-33.3); Mean Corpuscular Volume 93.1 fL (83.0-100.0); Red Blood Count 4.07 M/mcL (4.19-5.50); Red Cell Distribution Width 14.8 % (11.5-14.5); White Blood Count 8.7 K/mcL (4.3-11.1)
[2022-04-19 06:45] LABS: Platelet Count 60 K/mcL (140-400)
[2022-04-19] MEDS: lisinopriL 10 MG TABLET PO SCH (09:44)
[2022-04-19] MEDS: Folic Acid 1 MG TABLET PO SCH (09:44)
[2022-04-19] MEDS: Metoprolol XL (24 HR) Succ 50 MG TAB.ER.24H PO SCH (09:44)
[2022-04-19] MEDS: amLODIPine 5 MG TABLET PO SCH (09:44)
[2022-04-19] MEDS: Lactulose Oral Soln 20 GM/30 ML UDC PO SCH ×2 (09:44→20:21)
[2022-04-19] MEDS: Nicotine 21 MG PATCH.TD24 TD SCH (09:45)
[2022-04-19] MEDS: Thiamine (B-1) 100 MG TABLET PO SCH (09:57)
[2022-04-19] MEDS ORDERED: D10% in Water 500 ML IVC PRN (11:34)
[2022-04-19 12:36] LABS: Cytomegalovirus DNA (PCR) NOT DETECTED
[2022-04-19] MEDS ORDERED: Clinimix E 5%-15% SOLUTION 2,000 ML with MVI, adult with vitamin K 10 ML IVC SCH (17:00)
[2022-04-19] MEDS: QUEtiapine Fumarate 25 MG TABLET PO SCH (20:21)
[2022-04-20 05:38] LABS: Basophils % 0.3 %; Eosinophils # 0.1 K/mcL (0.0-0.6); Eosinophils % 0.6 %; Hematocrit 39.6 % (37.5-50.1); Hemoglobin 12.7 g/dL (12.9-16.9); Immature Granulocytes % 0.7 % (0-4); Lymphocytes # 1.7 K/mcL (0.6-4.6); Lymphocytes % 16.2 %; Mean Corpuscular HGB Conc 32.1 g/dL (31.6-35.5); Mean Corpuscular Hemoglobin 29.7 pg (28.0-33.3); Mean Corpuscular Volume 92.7 fL (83.0-100.0); Mean Platelet Volume 11.8 fL (9.4-12.4); Monocytes # 1.3 K/mcL (0.0-1.3); Neutrophils # 7.3 K/mcL (1.6-8.9); Red Blood Count 4.27 M/mcL (4.19-5.50); Red Cell Distribution Width 14.8 % (11.5-14.5); Segmented Neutrophils % 70.2 %; White Blood Count 10.4 K/mcL (4.3-11.1)
[2022-04-20] MEDS: Insulin LISPRO 300 UNITS/3 ML VIAL SUBQ SCH ×3 (05:39→17:14)
[2022-04-20 05:40] LABS: Platelet Count 78 K/mcL (140-400)
[2022-04-20 05:43] LABS: Alanine Aminotransferase 38 Units/L (7-52); Albumin 2.9 g/dL (3.5-5.7); Albumin/Globulin Ratio 0.6 (1.1-2.2); Alkaline Phosphatase 96 Units/L (34-104); Aspartate Amino Transferase 43 Units/L (13-39); BUN/Creatinine Ratio 38 (6-26); Bilirubin,Total 1.5 mg/dL (0.3-1.0); Blood Urea Nitrogen 18 mg/dL (8-23); Calcium 9.2 mg/dL (8.6-10.3); Carbon Dioxide 27 mEq/L (23-29); Chloride 115 mEq/L (98-107); Globulin 4.8 g/dL (2.4-3.5); Glucose 101 mg/dL (70-105); Magnesium 1.9 mg/dL (1.6-2.6); Osmolality,Calculated 308 (280-300); Phosphorous 2.5 mg/dL (2.7-4.5); Potassium 3.2 mEq/L (3.5-5.1); Sodium 148 mEq/L (136-145); Total Protein 7.7 g/dL (6.4-8.9); Triglycerides 71 mg/dL (< 150); eGFR For African Americans > 60 (> 60); eGFR For Non-African Americans > 60 (> 60)
[2022-04-20] MEDS: lisinopriL 10 MG TABLET PO SCH (09:20)
[2022-04-20] MEDS: Thiamine (B-1) 100 MG TABLET PO SCH (09:20)
[2022-04-20] MEDS: Folic Acid 1 MG TABLET PO SCH (09:20)
[2022-04-20] MEDS: Metoprolol XL (24 HR) Succ 50 MG TAB.ER.24H PO SCH (09:20)
[2022-04-20] MEDS: amLODIPine 5 MG TABLET PO SCH (09:20)
[2022-04-20] MEDS: Lactulose Oral Soln 20 GM/30 ML UDC PO SCH ×2 (09:21→20:05)
[2022-04-20] MEDS: Nicotine 21 MG PATCH.TD24 TD SCH (09:21)
[2022-04-20] MEDS ORDERED: Potassium Chloride Elixir 20 MEQ/15 ML UDC PO ONE (11:16)
[2022-04-20] MEDS: Nystatin SUSP 5 ML UD.LIQ PO SCH ×2 (16:03→20:05)
[2022-04-20] MEDS ORDERED: Clinimix E 5%-15% SOLUTION 2,000 ML with MVI, adult with vitamin K 10 ML IVC SCH (17:00)
[2022-04-20] MEDS: *HR* LORazepam 2 MG/ML VIAL IVP PRN (18:20)
[2022-04-20] MEDS: QUEtiapine Fumarate 25 MG TABLET PO SCH (20:04)
[2022-04-21] MEDS: Insulin LISPRO 300 UNITS/3 ML VIAL SUBQ SCH ×5 (00:56→23:13)
[2022-04-21 02:48] LABS: Hemoglobin 12.7 g/dL (12.9-16.9); Monocytes % 13.7 %
[2022-04-21 02:50] LABS: Basophils # 0.1 K/mcL (0.0-0.2); Basophils % 0.4 %; Eosinophils # 0.1 K/mcL (0.0-0.6); Eosinophils % 0.6 %; Hematocrit 39.7 % (37.5-50.1); Immature Granulocytes % 0.4 % (0-4); Immature Platelets 5.6 % (1.1-6.1); Lymphocytes # 1.9 K/mcL (0.6-4.6); Lymphocytes % 15.2 %; Mean Corpuscular Hemoglobin 29.8 pg (28.0-33.3); Mean Corpuscular Volume 93.2 fL (83.0-100.0); Mean Platelet Volume 13.5 fL (9.4-12.4); Monocytes # 1.7 K/mcL (0.0-1.3); Neutrophils # 8.6 K/mcL (1.6-8.9); Platelet Count 127 K/mcL (140-400); Red Blood Count 4.26 M/mcL (4.19-5.50); Red Cell Distribution Width 14.9 % (11.5-14.5); Segmented Neutrophils % 69.7 %; White Blood Count 12.3 K/mcL (4.3-11.1)
[2022-04-21 03:12] LABS: BUN/Creatinine Ratio 31 (6-26); Blood Urea Nitrogen 15 mg/dL (8-23); Carbon Dioxide 27 mEq/L (23-29); Chloride 117 mEq/L (98-107); Glucose 105 mg/dL (70-105); Osmolality,Calculated 307 (280-300); Phosphorous 2.1 mg/dL (2.7-4.5); Potassium 3.3 mEq/L (3.5-5.1); Sodium 148 mEq/L (136-145); eGFR For African Americans > 60 (> 60); eGFR For Non-African Americans > 60 (> 60)
[2022-04-21] MEDS: Nicotine 21 MG PATCH.TD24 TD SCH (09:21)
[2022-04-21] MEDS: Aspirin 81 MG TAB.CHEW PO SCH (09:23)
[2022-04-21] MEDS: Folic Acid 1 MG TABLET PO SCH ×2 (09:29→12:49)
[2022-04-21] MEDS: Thiamine (B-1) 100 MG TABLET PO SCH ×2 (09:29→12:49)
[2022-04-21] MEDS: amLODIPine 5 MG TABLET PO SCH ×2 (09:29→12:49)
[2022-04-21] MEDS: Lactulose Oral Soln 20 GM/30 ML UDC PO SCH ×3 (09:29→19:57)
[2022-04-21] MEDS: Nystatin SUSP 5 ML UD.LIQ PO SCH ×4 (09:29→20:01)
[2022-04-21] MEDS: lisinopriL 10 MG TABLET PO SCH ×2 (09:29→12:49)
[2022-04-21] MEDS: Metoprolol XL (24 HR) Succ 50 MG TAB.ER.24H PO SCH ×2 (09:29→12:58)
[2022-04-21] MEDS: Clinimix E 5%-15% SOLUTION 2,000 ML with MVI, adult with vitamin K 10 ML IVC SCH (17:32)
[2022-04-21] MEDS: QUEtiapine Fumarate 25 MG TABLET PO SCH (19:57)
[2022-04-22 02:05] LABS: Basophils # 0.1 K/mcL (0.0-0.2); Basophils % 0.4 %; Eosinophils # 0.1 K/mcL (0.0-0.6); Eosinophils % 0.5 %; Hematocrit 38.2 % (37.5-50.1); Hemoglobin 12.2 g/dL (12.9-16.9); Immature Granulocytes % 0.4 % (0-4); Immature Platelets 7.1 % (1.1-6.1); Lymphocytes # 1.9 K/mcL (0.6-4.6); Lymphocytes % 14.5 %; Mean Corpuscular HGB Conc 31.9 g/dL (31.6-35.5); Mean Corpuscular Volume 93.9 fL (83.0-100.0); Mean Platelet Volume 14.1 fL (9.4-12.4); Monocytes # 1.7 K/mcL (0.0-1.3); Neutrophils # 9.1 K/mcL (1.6-8.9); Platelet Count 102 K/mcL (140-400); Red Blood Count 4.07 M/mcL (4.19-5.50); Red Cell Distribution Width 14.8 % (11.5-14.5); Segmented Neutrophils % 71.2 %; White Blood Count 12.8 K/mcL (4.3-11.1)
[2022-04-22 02:24] LABS: Alanine Aminotransferase 39 Units/L (7-52); Albumin 2.6 g/dL (3.5-5.7); Albumin/Globulin Ratio 0.6 (1.1-2.2); Alkaline Phosphatase 88 Units/L (34-104); Aspartate Amino Transferase 41 Units/L (13-39); BUN/Creatinine Ratio 33 (6-26); Blood Urea Nitrogen 20 mg/dL (8-23); Calcium 9.1 mg/dL (8.6-10.3); Carbon Dioxide 27 mEq/L (23-29); Chloride 116 mEq/L (98-107); Globulin 4.6 g/dL (2.4-3.5); Glucose 100 mg/dL (70-105); Osmolality,Calculated 307 (280-300); Phosphorous 1.8 mg/dL (2.7-4.5); Potassium 3.5 mEq/L (3.5-5.1); Sodium 147 mEq/L (136-145); Total Protein 7.2 g/dL (6.4-8.9); eGFR For African Americans > 60 (> 60); eGFR For Non-African Americans > 60 (> 60)
[2022-04-22] MEDS: Insulin LISPRO 300 UNITS/3 ML VIAL SUBQ SCH ×3 (05:24→17:43)
[2022-04-22] MEDS: lisinopriL 10 MG TABLET PO SCH (08:57)
[2022-04-22] MEDS: Metoprolol XL (24 HR) Succ 50 MG TAB.ER.24H PO SCH (08:57)
[2022-04-22] MEDS: Nicotine 21 MG PATCH.TD24 TD SCH (08:57)
[2022-04-22] MEDS: Thiamine (B-1) 100 MG TABLET PO SCH (08:57)
[2022-04-22] MEDS: Nystatin SUSP 5 ML UD.LIQ PO SCH ×4 (08:57→20:13)
[2022-04-22] MEDS: Aspirin 81 MG TAB.CHEW PO SCH (08:57)
[2022-04-22] MEDS: amLODIPine 5 MG TABLET PO SCH (08:57)
[2022-04-22] MEDS: Folic Acid 1 MG TABLET PO SCH (08:57)
[2022-04-22] MEDS: Lactulose Oral Soln 20 GM/30 ML UDC PO SCH ×2 (08:58→20:13)
[2022-04-22 10:36] LABS: Purkinje Cell/ANNA IgG Scrn NONE DETECTED (None Detected)
[2022-04-22] MEDS ORDERED: Potassium Phosphate 44 MEQ in 0.9 % Sodium Chloride 250 ML IVPB ONE (11:19)
[2022-04-22] MEDS: Clinimix E 5%-15% SOLUTION 2,000 ML with MVI, adult with vitamin K 10 ML IVC SCH (15:52)
[2022-04-22] MEDS ORDERED: Clinimix E 5%-15% SOLUTION 2,000 ML with MVI, adult with vitamin K 10 ML IVC SCH (17:00)
[2022-04-22] MEDS: QUEtiapine Fumarate 25 MG TABLET PO SCH (20:13)
[2022-04-22] MEDS: *HR* LORazepam 2 MG/ML VIAL IVP PRN (21:45)
[2022-04-23] MEDS: Insulin LISPRO 300 UNITS/3 ML VIAL SUBQ SCH ×4 (02:04→23:06)
[2022-04-23 04:05] LABS: Eosinophils % 0.3 %; Mean Corpuscular HGB Conc 31.7 g/dL (31.6-35.5); Mean Corpuscular Hemoglobin 29.9 pg (28.0-33.3); Mean Corpuscular Volume 94.4 fL (83.0-100.0)
[2022-04-23 04:07] LABS: Basophils % 0.3 %; Hematocrit 35.7 % (37.5-50.1); Hemoglobin 11.3 g/dL (12.9-16.9); Immature Granulocytes % 0.8 % (0-4); Immature Platelets 8.5 % (1.1-6.1); Lymphocytes # 1.8 K/mcL (0.6-4.6); Mean Platelet Volume 13.4 fL (9.4-12.4); Monocytes # 1.6 K/mcL (0.0-1.3); Monocytes % 13.6 %; Neutrophils # 8.3 K/mcL (1.6-8.9); Red Blood Count 3.78 M/mcL (4.19-5.50); White Blood Count 11.9 K/mcL (4.3-11.1)
[2022-04-23 04:14] LABS: Platelet Count 85 K/mcL (140-400)
[2022-04-23 04:25] LABS: BUN/Creatinine Ratio 35 (6-26); Blood Urea Nitrogen 40 mg/dL (8-23); Carbon Dioxide 24 mEq/L (23-29); Chloride 114 mEq/L (98-107); Glucose 214 mg/dL (70-105); Magnesium 2.2 mg/dL (1.6-2.6); Osmolality,Calculated 312 (280-300); Phosphorous 2.8 mg/dL (2.7-4.5); Potassium 3.7 mEq/L (3.5-5.1); Sodium 143 mEq/L (136-145); eGFR For African Americans > 60 (> 60); eGFR For Non-African Americans > 60 (> 60)
[2022-04-23] MEDS: Thiamine (B-1) 100 MG TABLET PO SCH (08:21)
[2022-04-23] MEDS: lisinopriL 10 MG TABLET PO SCH (08:21)
[2022-04-23] MEDS: Metoprolol XL (24 HR) Succ 50 MG TAB.ER.24H PO SCH (08:21)
[2022-04-23] MEDS: Nicotine 21 MG PATCH.TD24 TD SCH (08:21)
[2022-04-23] MEDS: Aspirin 81 MG TAB.CHEW PO SCH (08:22)
[2022-04-23] MEDS: Folic Acid 1 MG TABLET PO SCH (08:22)
[2022-04-23] MEDS: amLODIPine 5 MG TABLET PO SCH (08:22)
[2022-04-23] MEDS: Nystatin SUSP 5 ML UD.LIQ PO SCH ×4 (08:22→23:06)
[2022-04-23] MEDS: Lactulose Oral Soln 20 GM/30 ML UDC PO SCH ×2 (08:22→20:27)
[2022-04-23] MEDS ORDERED: Clinimix E 5%-20% SOLUTION 2,000 ML with MVI, adult with vitamin K 10 ML IVC SCH (17:00)
[2022-04-23] MEDS: *HR* LORazepam 2 MG/ML VIAL IVP PRN (20:16)
[2022-04-23] MEDS: QUEtiapine Fumarate 25 MG TABLET PO SCH (20:27)
[2022-04-23] MEDS: Acetaminophen 325 MG TABLET PO PRN (20:31)
[2022-04-24] MEDS: Insulin LISPRO 300 UNITS/3 ML VIAL SUBQ SCH ×4 (01:14→18:04)
[2022-04-24 04:38] LABS: Alanine Aminotransferase 42 Units/L (7-52); Albumin 2.5 g/dL (3.5-5.7); Albumin/Globulin Ratio 0.6 (1.1-2.2); Alkaline Phosphatase 87 Units/L (34-104); Aspartate Amino Transferase 50 Units/L (13-39); BUN/Creatinine Ratio 29 (6-26); Bilirubin,Total 1.5 mg/dL (0.3-1.0); Blood Urea Nitrogen 33 mg/dL (8-23); Carbon Dioxide 24 mEq/L (23-29); Chloride 113 mEq/L (98-107); Globulin 4.5 g/dL (2.4-3.5); Glucose 108 mg/dL (70-105); Magnesium 2.3 mg/dL (1.6-2.6); Osmolality,Calculated 306 (280-300); Phosphorous 3.6 mg/dL (2.7-4.5); Potassium 4.2 mEq/L (3.5-5.1); Sodium 144 mEq/L (136-145); eGFR For African Americans > 60 (> 60); eGFR For Non-African Americans > 60 (> 60)
[2022-04-24] MEDS: Folic Acid 1 MG TABLET PO SCH (09:54)
[2022-04-24] MEDS: Aspirin 81 MG TAB.CHEW PO SCH (09:54)
[2022-04-24] MEDS: Metoprolol XL (24 HR) Succ 50 MG TAB.ER.24H PO SCH (09:54)
[2022-04-24] MEDS: Thiamine (B-1) 100 MG TABLET PO SCH (09:54)
[2022-04-24] MEDS: Nicotine 21 MG PATCH.TD24 TD SCH (09:54)
[2022-04-24] MEDS: Nystatin SUSP 5 ML UD.LIQ PO SCH ×4 (09:54→21:46)
[2022-04-24] MEDS: amLODIPine 5 MG TABLET PO SCH (09:54)
[2022-04-24] MEDS: lisinopriL 10 MG TABLET PO SCH (09:54)
[2022-04-24] MEDS: Lactulose Oral Soln 20 GM/30 ML UDC PO SCH ×2 (09:55→21:45)
[2022-04-24] MEDS: QUEtiapine Fumarate 25 MG TABLET PO SCH (21:45)
[2022-04-25] MEDS: Insulin LISPRO 300 UNITS/3 ML VIAL SUBQ SCH ×5 (00:23→23:56)
[2022-04-25] MEDS: Nicotine 21 MG PATCH.TD24 TD SCH (10:34)
[2022-04-25] MEDS: Aspirin 81 MG TAB.CHEW PO SCH (10:34)
[2022-04-25] MEDS: Lactulose Oral Soln 20 GM/30 ML UDC PO SCH ×2 (10:34→23:46)
[2022-04-25] MEDS: Nystatin SUSP 5 ML UD.LIQ PO SCH ×4 (10:34→23:47)
[2022-04-25] MEDS: Folic Acid 1 MG TABLET PO SCH (10:34)
[2022-04-25] MEDS: Metoprolol XL (24 HR) Succ 50 MG TAB.ER.24H PO SCH (10:35)
[2022-04-25] MEDS: QUEtiapine Fumarate 25 MG TABLET PO SCH (23:48)
[2022-04-26] MEDS: *HR* LORazepam 2 MG/ML VIAL IVP PRN ×2 (00:52→22:05)
[2022-04-26] MEDS: Folic Acid 1 MG TABLET PO SCH (08:32)
[2022-04-26] MEDS: Aspirin 81 MG TAB.CHEW PO SCH (08:32)
[2022-04-26] MEDS: Metoprolol XL (24 HR) Succ 50 MG TAB.ER.24H PO SCH (08:32)
[2022-04-26] MEDS: Lactulose Oral Soln 20 GM/30 ML UDC PO SCH ×2 (08:32→19:51)
[2022-04-26] MEDS: Nystatin SUSP 5 ML UD.LIQ PO SCH ×4 (08:33→19:51)
[2022-04-26] MEDS: Nicotine 21 MG PATCH.TD24 TD SCH (08:33)
[2022-04-26] MEDS: Insulin LISPRO 300 UNITS/3 ML VIAL SUBQ SCH ×3 (11:38→19:50)
[2022-04-26] MEDS: Acetaminophen 325 MG TABLET PO PRN (19:51)
[2022-04-26] MEDS: QUEtiapine Fumarate 25 MG TABLET PO SCH (19:51)
[2022-04-27] MEDS: Insulin LISPRO 300 UNITS/3 ML VIAL SUBQ SCH ×4 (06:25→18:19)
[2022-04-27] MEDS: Nicotine 21 MG PATCH.TD24 TD SCH (09:10)
[2022-04-27] MEDS: Aspirin 81 MG TAB.CHEW PO SCH (09:10)
[2022-04-27] MEDS: Lactulose Oral Soln 20 GM/30 ML UDC PO SCH ×2 (09:10→21:49)
[2022-04-27] MEDS: Folic Acid 1 MG TABLET PO SCH (09:10)
[2022-04-27] MEDS: Metoprolol XL (24 HR) Succ 50 MG TAB.ER.24H PO SCH (09:10)
[2022-04-27] MEDS: Nystatin SUSP 5 ML UD.LIQ PO SCH ×4 (09:11→21:50)
[2022-04-27] MEDS: QUEtiapine Fumarate 25 MG TABLET PO SCH (21:50)
[2022-04-28] MEDS: Insulin LISPRO 300 UNITS/3 ML VIAL SUBQ SCH ×4 (02:07→19:27)
[2022-04-28] MEDS: Folic Acid 1 MG TABLET PO SCH (08:03)
[2022-04-28] MEDS: Nicotine 21 MG PATCH.TD24 TD SCH (08:03)
[2022-04-28] MEDS: Aspirin 81 MG TAB.CHEW PO SCH (08:03)
[2022-04-28] MEDS: Metoprolol XL (24 HR) Succ 50 MG TAB.ER.24H PO SCH (08:03)
[2022-04-28] MEDS: Lactulose Oral Soln 20 GM/30 ML UDC PO SCH (08:04)
[2022-04-28] MEDS: Nystatin SUSP 5 ML UD.LIQ PO SCH ×4 (11:33→20:05)
[2022-04-28] MEDS: QUEtiapine Fumarate 25 MG TABLET PO SCH (20:05)
[2022-04-29] MEDS: Insulin LISPRO 300 UNITS/3 ML VIAL SUBQ SCH ×5 (00:58→20:42)
[2022-04-29] MEDS: Nystatin SUSP 5 ML UD.LIQ PO SCH ×4 (08:50→20:45)
[2022-04-29] MEDS: Nicotine 21 MG PATCH.TD24 TD SCH (09:53)
[2022-04-29] MEDS: Metoprolol XL (24 HR) Succ 50 MG TAB.ER.24H PO SCH (09:53)
[2022-04-29] MEDS: *HR* LORazepam Oral Conc 2 MG/ML PO PRN ×2 (10:50→16:38)
[2022-04-29] MEDS: QUEtiapine Fumarate 25 MG TABLET PO SCH (20:48)
[2022-04-29] MEDS: *HR* LORazepam 2 MG/ML VIAL IVP PRN (20:52)
[2022-04-29] MEDS ORDERED: Haloperidol Lactate 5 MG/ML VIAL IVP ONE (23:00)
[2022-04-30] MEDS: *HR* LORazepam Oral Conc 2 MG/ML PO PRN (04:06)
[2022-04-30] MEDS: Metoprolol XL (24 HR) Succ 50 MG TAB.ER.24H PO SCH (08:36)
[2022-04-30] MEDS: Insulin LISPRO 300 UNITS/3 ML VIAL SUBQ SCH ×4 (08:36→20:47)
[2022-04-30] MEDS: Nicotine 21 MG PATCH.TD24 TD SCH (08:36)
[2022-04-30] MEDS: Nystatin SUSP 5 ML UD.LIQ PO SCH ×4 (08:36→15:51)
[2022-04-30] MEDS ORDERED: Haloperidol Oral Conc 10 MG/5 ML UDC PO PRN (09:43)
[2022-04-30] MEDS ORDERED: Haloperidol Lactate 5 MG/ML VIAL IVP PRN (09:46)
[2022-04-30] MEDS: Haloperidol Oral Conc 10 MG/5 ML UDC PO SCH ×2 (15:50→20:48)
[2022-04-30] MEDS: *HR* LORazepam 2 MG/ML VIAL IVP PRN (18:08)
[2022-04-30] MEDS ORDERED: Haloperidol Oral Conc 10 MG/5 ML UDC PO SCH (21:00)
[2022-05-01] MEDS: Haloperidol Oral Conc 10 MG/5 ML UDC PO SCH ×4 (04:04→22:03)
[2022-05-01] MEDS: Insulin LISPRO 300 UNITS/3 ML VIAL SUBQ SCH ×4 (10:52→23:39)
[2022-05-01] MEDS: Nystatin SUSP 5 ML UD.LIQ PO SCH ×4 (10:54→22:03)
[2022-05-01] MEDS: Nicotine 21 MG PATCH.TD24 TD SCH (10:54)
[2022-05-01] MEDS: Metoprolol XL (24 HR) Succ 50 MG TAB.ER.24H PO SCH (10:55)
[2022-05-01] MEDS ORDERED: Haloperidol Oral Conc 10 MG/5 ML UDC PO PRN (14:57)
[2022-05-02] MEDS: Haloperidol Oral Conc 10 MG/5 ML UDC PO SCH ×4 (04:43→21:55)
[2022-05-02] MEDS: Metoprolol XL (24 HR) Succ 50 MG TAB.ER.24H PO SCH (09:57)
[2022-05-02] MEDS: Nystatin SUSP 5 ML UD.LIQ PO SCH (09:59)
[2022-05-02] MEDS: Insulin LISPRO 300 UNITS/3 ML VIAL SUBQ SCH ×4 (09:59→21:25)
[2022-05-02] MEDS: Nicotine 21 MG PATCH.TD24 TD SCH (10:01)
[2022-05-02] MEDS ORDERED: Glycopyrrolate 0.2 MG/ML VIAL IVP PRN (16:01)
[2022-05-02] MEDS ORDERED: Atropine 1% Opth Drops 100 DROP/5 ML BOTTLE SL PRN (16:05)
[2022-05-02] MEDS: Atropine Sulfate 1% 40 DROP/2 ML BOTTLE SL PRN ×2 (18:49→22:01)
[2022-05-03] MEDS: Haloperidol Oral Conc 10 MG/5 ML UDC PO SCH ×4 (03:14→21:35)
[2022-05-03] MEDS: *HR* LORazepam Oral Conc 2 MG/ML PO PRN ×2 (07:30→17:14)
[2022-05-03] MEDS: Insulin LISPRO 300 UNITS/3 ML VIAL SUBQ SCH ×4 (09:03→19:48)
[2022-05-03] MEDS: Metoprolol XL (24 HR) Succ 50 MG TAB.ER.24H PO SCH (09:04)
[2022-05-03] MEDS: Nicotine 21 MG PATCH.TD24 TD SCH (09:27)
[2022-05-03] MEDS: Atropine Sulfate 1% 40 DROP/2 ML BOTTLE SL PRN (17:15)
[2022-05-04] MEDS: Haloperidol Oral Conc 10 MG/5 ML UDC PO SCH ×4 (03:03→21:47)
[2022-05-04] MEDS: Insulin LISPRO 300 UNITS/3 ML VIAL SUBQ SCH ×4 (07:36→19:15)
[2022-05-04] MEDS: *HR* LORazepam Oral Conc 2 MG/ML PO PRN ×2 (08:47→19:23)
[2022-05-04] MEDS: Nicotine 21 MG PATCH.TD24 TD SCH (08:47)
[2022-05-04] MEDS: Metoprolol XL (24 HR) Succ 50 MG TAB.ER.24H PO SCH (09:46)
[2022-05-04] MEDS: Atropine Sulfate 1% 40 DROP/2 ML BOTTLE SL PRN ×2 (16:42→19:19)
[2022-05-04 18:58] VITALS: BP 103/66; PULSE 131; TEMP 99.3; O2SAT 87
== END 2022-05-05 02:45 | disposition expired | DRG 471 ==
LOC: 3BNU → SUATTDRO 16:54 → 2NNU 04-02 11:04 → SUATTDRO 04-03 12:10 → 3ANU 04-04 15:56 → 4WAOSI 04-09 12:57 → 2NNU 04-09 17:22 → 4WAOSI 04-12 12:03 → 2NENU 04-14 15:51 → 2ANU 04-29 10:22
PROVIDERS: ADMIT Internal Medicine; ATTEND Internal Medicine
PROC: SPICORP (2022-04-10 17:00)